=== PATIENT | female | born 1945 | race Caucasian/White ===

== ENCOUNTER → 2023-06-03 | Day surgery (SDC) | payer MEDICARE, MEDICAID ==
[~2023-06-03] VITALS: Ht 152.4 cm; Wt 74.8 kg
[~2023-06-03] MED LIST: ASPI-1497 PO; ATOR20TA65 PO; BALANCED SALT IRRIG SOLN COMB1 500ML OP NR; DYZ PO; HYALURONATE SODIUM 10 MG/ML 0.55ML SYRINGE IO ONE; INSU100V36 SQ; LEVO100T9 PO; LOSA50TA41 PO; METHYLPREDNISOLONE SOD SUCC 40MG/ML (ACT-O-VIAL) ONE; METO5TAB2 PO; ONDANSETRON HCL 4MG/2ML INJ ONE; PANT40TA51 PO; PHENYLEPHRINE 2.5% OPHTH 15 DROP/ML BOTTLE LEFTEYE ONE; PROPOFOL 200MG/20ML VIAL IV ONE; SERT25TA74 PO; TOBRAMYCIN/DEXAMETHASONE OPTH DROPS 2.5ML ONE; TROPICAMIDE 1% OPHTH DROPS 15ML LEFTEYE ONE
[2023-06-03 09:06] LABS: BASOPHILS % 0.4 % (0.0-2.0); EOSINOPHILS % 2.9 % (0.0-5.0); HEMATOCRIT. 32.8 % (36.0-48.0); LYMPHOCYTES % 43.9 % (20.0-50.0); MEAN CORPUSCULAR HEMOGLOBIN 30.9 pg (28.0-32.0); MEAN CORPUSCULAR HGB CONC 33.4 g/dL (31.0-37.0); MEAN CORPUSCULAR VOLUME 92.4 fL (81.0-99.0); MEAN PLATELET VOLUME 9.3 fl (7.4-10.4); MONOCYTES % 5.7 % (2.0-8.0); NEUTROPHILS % 47.1 % (40.0-76.0); PLATELET 224 x1000/uL (130-400); RED BLOOD CELL COUNT 3.55 mill/uL (4.2-5.4); WHITE BLOOD COUNT 5.5 x1000/uL (4.5-11.0)
[2023-06-03] MEDS: SODIUM CHLORIDE 0.9% 1,000 ML IV SCH (09:35)
[2023-06-03 09:59] LABS: POTASSIUM 5.6 mEq/L (3.5-5.1)
[2023-06-03 10:00] LABS: CREATININE 2.4 mg/dL (0.6-1.0)
== END | disposition home or self-care (01) ==
LOC: OR 08:19
PROVIDERS: ATTEND Ophthalmology
DX: E11.36 Type 2 diabetes mellitus with diabetic cataract (principal); H25.89 Other age-related cataract; I10 Essential (primary) hypertension; E78.00 Pure hypercholesterolemia, unspecified; F32.9 Major depressive disorder, single episode, unspecified; Z79.82 Long term (current) use of aspirin; Z79.4 Long term (current) use of insulin; Z79.899 Other long term (current) drug therapy; Z88.2 Allergy status to sulfonamides; Z88.8 Allergy status to other drugs, medicaments and biological substances; Z98.890 Other specified postprocedural states
CPT/HCPCS: 66984; 67005; 80048; 82962; 85025; 36415; 93005; J2704 ×2; J2920; J2405; J3490; A4217; Z7610 ×16; V2630

== ENCOUNTER → 2024-01-07 | Day surgery (SDC) | payer MEDICARE, MEDICAID ==
[~2024-01-07] VITALS: Ht 149.9 cm; Wt 74.8 kg
[~2024-01-07] MED LIST changes: -BALANCED SALT IRRIG SOLN COMB1 500ML OP NR; +BALANCED SALT IRRIG SOLN COMB1 500ML OP ONE; +GLYCOPYRROLATE 0.2MG/ML VIAL 5ML IV PRN; -HYALURONATE SODIUM 10 MG/ML 0.55ML SYRINGE IO ONE; +HYALURONATE SODIUM 10MG/ML 0.55ML SYRINGE IO ONE; +HYDRALAZINE 20MG/ML VIAL IV PRN; +HYDROMORPHONE HCL/PF 1MG/ML INJ IV PRN; +LABETALOL 5MG/ML 4ML INJ IV PRN; -METHYLPREDNISOLONE SOD SUCC 40MG/ML (ACT-O-VIAL) ONE; -METO5TAB2 PO; +ONDANSETRON HCL 4MG/2ML INJ IV PRN; -ONDANSETRON HCL 4MG/2ML INJ ONE; -PHENYLEPHRINE 2.5% OPHTH 15 DROP/ML BOTTLE LEFTEYE ONE; -TOBRAMYCIN/DEXAMETHASONE OPTH DROPS 2.5ML ONE; -TROPICAMIDE 1% OPHTH DROPS 15ML LEFTEYE ONE
[2024-01-07 07:58] LABS: BASOPHILS % 0.5 % (0.0-2.0); EOSINOPHILS % 2.9 % (0.0-5.0); HEMATOCRIT. 32.9 % (36.0-48.0); HEMOGLOBIN. 11.1 g/dL (12.0-16.0); LYMPHOCYTES % 35.6 % (20.0-50.0); MEAN CORPUSCULAR HEMOGLOBIN 32.2 pg (28.0-32.0); MEAN CORPUSCULAR HGB CONC 33.6 g/dL (31.0-37.0); MONOCYTES % 5.1 % (2.0-8.0); NEUTROPHILS % 55.9 % (40.0-76.0); PLATELET 250 x1000/uL (130-400); RED BLOOD CELL COUNT 3.43 mill/uL (4.2-5.4); RED CELL DISTRIBUTION WIDTH 12.9 % (11.6-14.6)
[2024-01-07 08:03] LABS: POTASSIUM 5.3 mEq/L (3.5-5.1)
[2024-01-07 08:05] LABS: CALCIUM 9.4 mg/dL (8.7-10.4)
[2024-01-07 08:09] LABS: CREATININE 1.9 mg/dL (0.6-1.0)
== END | disposition home or self-care (01) ==
LOC: OR 07:22
PROVIDERS: ATTEND Ophthalmology
DX: T85.22XA Displacement of intraocular lens, initial encounter (principal); H27.02 Aphakia, left eye; I10 Essential (primary) hypertension; E11.9 Type 2 diabetes mellitus without complications; I44.7 Left bundle-branch block, unspecified; E03.9 Hypothyroidism, unspecified; E78.5 Hyperlipidemia, unspecified; F32.9 Major depressive disorder, single episode, unspecified; Z79.4 Long term (current) use of insulin; Z79.82 Long term (current) use of aspirin; Z79.899 Other long term (current) drug therapy; Z88.2 Allergy status to sulfonamides; Z88.8 Allergy status to other drugs, medicaments and biological substances; Z98.890 Other specified postprocedural states; X58.XXXA Exposure to other specified factors, initial encounter; Y93.89 Activity, other specified; Y92.89 Other specified places as the place of occurrence of the external cause; Y99.8 Other external cause status
CPT/HCPCS: 67005; 93005; 80048; 82962; 85025; 36415; 65920; J2704; J3490